=== PATIENT | female | born 1985 | race Caucasian/White ===

== ENCOUNTER 2025-01-10 06:20 | Day surgery (SDC) | payer OTHER ==
[~2025-01-10] VITALS: Ht 166 cm; Wt 119.7 kg
[2025-01-10] VITALS (19 sets, daily range): BP systolic 113–146; BP diastolic 63–96
[~2025-01-10 06:20] MED LIST: AMOX500 PO; BIRTH CONTROL; CRUTCH4 USE; CeFAZolin Sodium 2,000 MG in NS 100 ML IV SCH; ERGO50000 PO; GLUCOPHAGE1000 M1 PO; HYDACE5 PO; PARO20 PO; PHENTRAMINE; PROM25 PO; TRAZ100 PO; [UNRECOGNIZED DRUG - OTHER] PO
[2025-01-10] MEDS ORDERED: Midazolam HCl 1MG / ML 2ML Vial ONE (06:56)
[2025-01-10] MEDS ORDERED: Rocuronium Bromide 10 MG/ML 5ML Injection IV ONE ×2 (06:56→09:25)
[2025-01-10] MEDS ORDERED: Ondansetron HCl 2 MG / ML 2ML Vial ONE (06:56)
[2025-01-10] MEDS ORDERED: Dexamethasone Sod Phos 10 MG/ML 1ML VIAL ONE (06:56)
[2025-01-10] MEDS ORDERED: FentaNYL Citrate 50 MCG/ML 2 ML Injection ONE ×2 (06:56→09:55)
[2025-01-10] MEDS ORDERED: Sugammadex Sodium 200 MG/2ML SDV (100 MG/ML) ONE (06:56)
--- NOTE | 2025-01-10 06:57 | NUR ---
UPON ARRIVAL TO DAY SURGERY, REQUESTED THAT PATIENT REMOVE RING FROM RIGHT HAND. PATIENT STATED IT WAS TOO TIGHT TO REMOVE. AGREED WITH PATIENT WHEN ASSESSED FINGER. OFFERED TO USE RING CUTTER TO AVOID POSSIBLE COMPLICATIONS OF LEAVING IN PLACE. PATIENT AGREED. RING CUTTER USED WITH EASE. RING RETURNED TO PATIENT AND SHE GAVE TO HER , HOSEA, FOR SAFE KEEPING. HOSEA AT BEDSIDE.
[2025-01-10] MEDS ORDERED: CeFAZolin Sodium 2,000 MG VIAL ONE (07:00)
[2025-01-10] MEDS ORDERED: Bupivacaine 0.5% W/EPI 1:200000 SDV 30 ML Vial ONE (07:11)
[2025-01-10] MEDS ORDERED: CeFAZolin Sodium 1000 mg Vial ONE (08:04)
[2025-01-10] MEDS ORDERED: Ondansetron HCl 2 MG / ML 2ML Vial IV PRN ×2 (08:20→09:40)
[2025-01-10] MEDS ORDERED: FentaNYL Citrate 50 MCG/ML 2 ML Injection IV PRN ×3 (08:20→09:45)
[2025-01-10] MEDS ORDERED: HYDROmorphone HCl/Pf 1MG SYR IV PRN ×2 (08:20)
[2025-01-10] MEDS ORDERED: Metoclopramide HCl 5MG / ML 2ML Vial IV PRN (08:20)
[2025-01-10] MEDS ORDERED: ePHEDrine Sulfate 50 MG/ML 1ML Injection IV PRN (08:20)
[2025-01-10] MEDS ORDERED: Glycopyrrolate 0.2 MG/ML 5ML VIAL ONE (08:23)
[2025-01-10] MEDS ORDERED: HYDROmorphone HCl/Pf 1MG SYR ONE (08:34)
[2025-01-10] MEDS ORDERED: Ketorolac Tromethamine 30mg Vial ONE (08:34)
[2025-01-10] MEDS ORDERED: HYDROcodone 5-APAP 325 TAB PO PRN (09:45)
--- NOTE | 2025-01-10 09:52 | NUR ---
PT TO PACU, VSS, SINUS TACHY, SATTING 100% ON RA. DENIES PAIN. WEANED TO RA WITHOUT ISSUE.
--- NOTE | 2025-01-10 10:54 | NUR ---
ASSUMTPION OF CARE PT ARRIVED TO UNIT AXO4. VSS. VEGAS PRESENT - REMOVED UPON ARRIVAL. TOLERATING WATER CURRENTLY. FLUIDS INFUSING. LAP SITES X2 CDI. MIN SANGUINOUS DRAINAGE TO VAGINA - PAD REPLACED. SCOOTED OVER TO BED W/O ASSIST. FAMILY IN ROOM. FIRST POSTOP VS STABLE.
[2025-01-10] MEDS ORDERED: Ketorolac Tromethamine 30mg Vial IV SCH (12:00)
[2025-01-10 12:36] LABS: BASOPHILS ABSOLUTE AUTO 0.04 K/mm3 (0.00-0.23); BASOPHILS PERCENT AUTO 0 % (0-2); EOSINOPHILS ABSOLUTE AUTO 0.01 K/mm3 (0.00-0.68); EOSINOPHILS PERCENT AUTO 0 % (0-6); Hematocrit 37.2 % (33.0-51.0); Hemoglobin 12.0 g/dL (11.5-16.0); IMMATURE GRAN ABSOLUTE AUTO 0.08 K/mm3 (0.00-0.10); IMMATURE GRAN PERCENT AUTO 1 % (0-1); LYMPHOCYTES ABSOLUTE AUTO 0.69 K/mm3 (0.84-5.20); LYMPHOCYTES PERCENT AUTO 5 % (21-46); MONOCYTES ABSOLUTE AUTO 0.26 K/mm3 (0.16-1.47); MONOCYTES PERCENT AUTO 2 % (4-13); Mean Corpuscular HGB Conc 32.3 g/dL (31.5-36.5); Mean Corpuscular Volume 79 fL (80-100); NEUTROPHILS ABSOLUTE AUTO 13.60 K/mm3 (1.96-9.15); NEUTROPHILS PERCENT AUTO 93 % (41-73); NRBC ABSOLUTE 0.00 K/mm3 (0.00-0.02); NRBC Auto 0.0 /100 WBC (0.0-0.2); Platelet Count 245 K/mm3 (150-400); RDW Coefficient Variation 14.1 % (11.7-14.2); RDW Standard Deviation 40.2 fL (35.1-46.3)
--- NOTE | 2025-01-10 15:23 | NUR ---
SUMMARY SEE ASSUMPTIN OF CARE NOTE. POSTOP, PT VOIDED, TOLERATED PO INTAKE WELL W/O NAUSEA. PAIN MEDS ADMINISTERED TO EFFECT TO ALLEVIATE ABD PAIN. PT WALKING AROUND UNIT MULTIPLE TIMES W/ STAFF AND SPOUSE. USED HEAT PAD TO HELP ALLEVIATE PAIN WELL. LAP SITES REMAINED CDI. MINIMAL SANGUINOUS DC NOTED TO VAGINA. BUT OTHERWISE NO ACUTE CHANGES. VSS. DC INSTRUCTIONS PROVIDED TO PT AND SPOUSE. IV PULLED OUT. PHYSICAL PAIN PRESCRIPTION WITH PT. PT WHEELED OUT OF ROOM WITH BELONGINGS @8536.
--- NOTE | 2025-01-10 18:20 | NUR ---
HYDROCODONE / APAP ADMINISTRATION @1122 WAS ADMINISTERING HYDROCODONE/APAP 5/325 TO PATIENT, MED SCANNED, ADMINISTERED TO PATIENT AND THEN COMPUTER BEFORE COMPLETING [facility] SUBMISSION. AFTER TURNING COMPUTER BACK ON AND ATTEMPTING TO GET BACK INTO [facility] TO SUBMIT MED, [employer] NOT ALLOWING TO SCAN MEDICATION DUE TO "2 WINDOWS OF [employer] OPENED" DESPITE ONLY 1 WINDOW OPENED. IT CALLED - ATTEMPTING TO RESOLVE ISSUE NOW. PT RECEIVED 5/325MG HYDROCODONE / APAP @1122. WILL CHART THIS IN [facility] WHEN ABLE TO.
== END 2025-01-10 15:25 | disposition home or self-care (01) ==
LOC: ORSCMMR 06:20 → ORD 07:30 → SURS 10:46 → ORSCMMR 15:25
PROVIDERS: Obstetrics & Gynecology
PROC: 0UT7FZZ Resection of Bilateral Fallopian Tubes, Via Natural or Artificial Opening With Percutaneous Endoscopic Assistance (ICD-10-PCS; principal; 2025-01-10 07:30)
PROC: 0UT9FZZ Resection of Uterus, Via Natural or Artificial Opening With Percutaneous Endoscopic Assistance (ICD-10-PCS; principal; 2025-01-10 07:30)
DX: N93.8 Other specified abnormal uterine and vaginal bleeding (principal); E28.2 Polycystic ovarian syndrome; N83.8 Other noninflammatory disorders of ovary, fallopian tube and broad ligament; N80.03 Adenomyosis of the uterus; E66.01 Morbid (severe) obesity due to excess calories; Z68.41 Body mass index [BMI] 40.0-44.9, adult; Z79.84 Long term (current) use of oral hypoglycemic drugs; Z79.899 Other long term (current) drug therapy
CPT/HCPCS: 36415; 85025; 88307; A9270; J0690; J1100; J1171; J1885; J2250; J2405; J2704; J3010; J7120